=== PATIENT | male | born 1965 | race Caucasian/White ===

== ENCOUNTER 2019-05-01 10:49 | Inpatient (IN) | payer OTHER ==
[~2019-05-01] VITALS: Ht 172.7 cm; Wt 54.9 kg
--- NOTE | 2019-05-01 10:49 | NUR ---
Patient BIBA ALS, transferred to bed 11. RN evaluating patient at bedside.
[2019-05-01 10:54] VITALS: BP_SYST 80; BP_SYST 88; BP_DIAS 49; BP_DIAS 53
[2019-05-01] MEDS ORDERED: NACL 0.9% 250 ML IV ONE ×2 (11:05→16:25)
[2019-05-01] MEDS ORDERED: ONDANSETRON 4 MG/2 ML VIAL IVP ONE (11:10)
--- NOTE | 2019-05-01 11:10 | NUR ---
ABG obtained by respiratory therapist.
--- NOTE | 2019-05-01 11:13 | NUR ---
experimental technician at bedside.
--- NOTE | 2019-05-01 11:15 | NUR ---
53 Y/O MALE BIBA FROM [facility] WITH C/O HYPOTENSION. PT WAS AT DIALYSIS BUT DID NOT FINISH TODAY. PER EMS PT MISSED DIALYSIS TWICE. PT PRESENTS W/ LOW BP, RR EVEN AND UNLABORED. +NAUSEA/VOMITING. BOWEL SOUNDS PRESENT X 4 QUAD. ERMD MADE AWARE OF PT STATUS.
[2019-05-01 11:34] LABS: BASOPHILS # (AUTO) 0.1 K/uL (0.00-0.22); BASOPHILS % (AUTO) 0.4 % (0.0-2.0); EOSINOPHILS # (AUTO) 0.2 K/uL (0-0.4); EOSINOPHILS % (AUTO) 1.4 % (0.0-4.0); HEMATOCRIT 37.3 % (36-52); HEMOGLOBIN 11.4 g/dL (12.0-18.0); LYMPHOCYTES # (AUTO) 1.8 K/uL (2.0-11.5); LYMPHOCYTES % (AUTO) 11.1 % (20.5-51.1); MEAN CORPUSCULAR HEMOGLOBIN 25 pg (27-31); MEAN CORPUSCULAR HGB CONC 31 g/dL (33-37); MEAN CORPUSCULAR VOLUME 81.6 fL (80-94); MONOCYTES # (AUTO) 1.1 K/uL (0.8-1.0); NEUTROPHILS # (AUTO) 12.8 K/uL (1.8-7.7); NEUTROPHILS % (AUTO) 80.1 % (42.2-75.2); PLATELET COUNT (AUTO) 275 K/uL (140-450); RED BLOOD CELL COUNT(AUTO) 4.57 MIL/uL (4.20-6.10); RED CELL DISTRIBUTION WIDTH 19.8 % (11.6-13.7)
[2019-05-01 11:53] LABS: ALBUMIN 2.3 g/dL (3.4-5.0); ANION GAP 14.8 (8-16); CARBON DIOXIDE 34.9 mmol/L (21-32); POTASSIUM 3.7 mmol/L (3.5-5.1); TOTAL BILIRUBIN 0.4 mg/dL (0.0-1.0)
[2019-05-01 11:58] LABS: CREATININE 8.6 mg/dL (0.6-1.3)
[2019-05-01] MEDS ORDERED: PIPERACILLIN/TAZOBACTAM 3.375 GM in DEXTROSE 5% 50 ML IV ONE (12:10)
[2019-05-01 12:20] LABS: PROTHROMBIN TIME 10.8 secs (10.8-13.4)
[2019-05-01] MEDS ORDERED: PIPERACILLIN/TAZOBACTAM 3.375 GM VIAL IV ONE (12:23)
--- NOTE | 2019-05-01 12:48 | NUR ---
PT LAYING IN BED, NEEDS SUCTIONING, MINIMAL VOMIT. ERMD MADE AWARE
[2019-05-01] MEDS: NACL 0.9% 1,000 ML IV SCH (12:52)
[2019-05-01] MEDS ORDERED: HYDROcodone/APAP 5/325 MG 1 TAB TAB PO PRN (12:55)
[2019-05-01] MEDS ORDERED: MORPHINE SULFATE 2 MG/ML SYR IVP PRN (12:55)
[2019-05-01] MEDS ORDERED: DOCUSATE SODIUM 100 MG GELCAP PO PRN (12:55)
[2019-05-01] MEDS ORDERED: ACETAMINOPHEN 325 MG TAB PO PRN (12:55)
[2019-05-01] MEDS ORDERED: NACL 0.9% 500 ML IV ONE (13:05)
--- NOTE | 2019-05-01 13:35 | NUR ---
RESTING IN BED CALM AND PLEASANT. REMAINS ON MONITOR. RR EVEN AND UNLABORED. X1 EPISODE OF VOMITING. ERMD MADE AWARE
[2019-05-01 13:50] LABS: MAGNESIUM 2.4 mg/dL (1.8-2.4); PHOSPHORUS 3.8 mg/dL (2.5-4.9); THYROID STIMULATING HORMONE 4.44 uIU/mL (0.34-3.74)
[2019-05-01] MEDS ORDERED: DEXTROSE 50% 50 ML SYR IVP PRN (14:35)
[2019-05-01] MEDS ORDERED: INSULIN LISPRO SLIDING SCALE 100 UNITS/ML VIAL SUBQ PRN (14:35)
--- NOTE | 2019-05-01 14:46 | NUR ---
Patient will be admitted to care of DR VAZQUEZ. Admited to TELE. Will go to room 117. Belongings list completed. Report to JORGE NETTLES.
[2019-05-01] MEDS ORDERED: FAMO-90 GT (14:55)
[2019-05-01] MEDS ORDERED: ATRO10DR OP (14:55)
[2019-05-01] MEDS ORDERED: MELA1TAB32 GT (14:55)
[2019-05-01] MEDS ORDERED: MULT-153 GT (14:55)
[2019-05-01] MEDS ORDERED: XALOS OP (14:55)
[2019-05-01] MEDS ORDERED: SUCR1TAB35 GT (14:55)
[2019-05-01] MEDS ORDERED: VITA1TAB44 GT (14:55)
[2019-05-01] MEDS ORDERED: PYRI-218 GT (14:55)
[2019-05-01] MEDS ORDERED: DOCU-299 GT (14:55)
[2019-05-01] MEDS ORDERED: METO-485 GT (14:55)
[2019-05-01] MEDS ORDERED: ATOR20TA40 GT (14:55)
--- NOTE | 2019-05-01 15:00 | NUR ---
RECEIVED BEDSIDE SHIFT REPORT FROM ER NURSE FOR CONTINUATION OF CARE.
[2019-05-01] MEDS ORDERED: VANCOMYCIN PER PHARMACY MC PRN (16:10)
[2019-05-01] MEDS ORDERED: VANCOMYCIN 1,000 MG in DEXTROSE 5% 250 ML IV SCH (17:00)
--- NOTE | 2019-05-01 17:00 | NUR ---
MEDICATIONS ADMINISTERED PER GTUBE, TOLERATED WELL. VITALS ARE STABLE. TACHYCARDIA WITH NO SYMPTOMS AT THIS TIME. PATIENT REMAINS VERBALLY UNRESPONSIVE TO CUES OR COMMANDS. CHERRY INTACT, DARK URINE. WILL CONTINUE TO MONITOR.
[2019-05-01] MEDS: BLOOD GLUCOSE MONITORING 1 DEV DEV FS SCH ×2 (17:08→21:36)
[2019-05-01] MEDS: METOCLOPRAMIDE 10 MG TAB GT SCH (17:38)
[2019-05-01] MEDS: SUCRALFATE 1 GM TAB GT SCH (17:38)
--- NOTE | 2019-05-01 19:25 | NUR ---
REPORT GIVEN TO VAUDEVILLE ACTOR NURSE FOR CONTINUATION OF CARE.
--- NOTE | 2019-05-01 19:28 | NUR ---
RECEIVED PT IN STABLE CONDITION FROM AM NURSE. BEDREST. PT IS AWAKE BUT NON VERBAL. BLIND. HIGH RISK FOR FALL PROTOCOL ENFORCED. BED ON LOWEST POSITION. FREQ ROUNDS NEEDED. SIDE RAILS UP X2. FREQ ROUNDS NEEDED. CALL LIGHT PLACED WITHIN REACH. BED ALARM ON. WITH IVF INFUSING WELL ON THE LT AC G320 . CLEAR AND PATENT. CHERRY CATHETER IN PLACED WITH ONLY VERY SCANTY URINE OUTPUT ON THE TUBINGS. STILL NEED URINE SPECIMEN FOR LAB. WILL FOLLOW UP OTHER NEW ORDERS AND CONTINUE TO MONITOR.
[2019-05-01 20:00] VITALS: BP 91/36
[2019-05-01] MEDS ORDERED: NACL OP SCH (21:00)
[2019-05-01] MEDS ORDERED: ATROPINE SULFATE OP SCH (21:00)
[2019-05-01] MEDS ORDERED: MELATONIN 3 MG TAB GT PRN (21:00)
[2019-05-01] MEDS ORDERED: NON-FORMULARY ITEM (Melatonin/Pyridoxine HCl (B6) (Melatonin 3 mg Tablet) 1 EACH) GT SCH (21:00)
[2019-05-01] MEDS: MELATONIN 3 MG TAB GT SCH (21:36)
--- NOTE | 2019-05-01 21:36 | NUR ---
BLOOD SUAGR WAS CHECKED RESULT 115. NO INSULIN NEEDED.
[2019-05-01] MEDS: ATORVASTATIN 20 MG TAB GT SCH (21:37)
[2019-05-01] MEDS: PIPERACILLIN/TAZOBACTAM 2.25 GM in DEXTROSE 5% 50 ML IV SCH (21:38)
[2019-05-01] MEDS: LATANOPROST 0.005% OP 2.5 ML BTL OP SCH (21:40)
[2019-05-01] MEDS: ATROPINE 1% OP SOL 5ML BTL OP SCH (21:41)
[2019-05-01] MEDS: ONDANSETRON 4 MG/2 ML VIAL IM/IVP PRN (21:41)
--- NOTE | 2019-05-01 21:41 | NUR ---
VOMITED @ 60 ML LIQUID. ZOFRAN IVP GIVEN ORDERED. WILL CONTINUE TO MONITOR.
[2019-05-01] MEDS ORDERED: CRUSHER, PILL MC ONE (22:06)
--- NOTE | 2019-05-01 23:00 | NUR ---
MADE ROUNDS. PT ASLEEP. NO S/S OF ANY DISTRESS NOTED. WILL CONTINUE TO MONITOR.
[2019-05-02] VITALS: BP 91/67
--- NOTE | 2019-05-02 01:00 | NUR ---
SACRAL DRESSING REMOVED. NO OPEN WOUND NOTED. JUST A SLIGHT REDNESS NOTED. CLEANED WITH NS THEN COVERED WITH OPTIFOAM DRESSING. NO CLOSED WOUND ON MEDIAL BUTTOCKS NOTED. ONLY THE ONE FROM RT BIG TOE,OPEN WOUND BUT NO DRAINAGE NOTED . FRANCINE AND HEEL PROTECTOR TO BOTH HEEL APPLIED.
--- NOTE | 2019-05-02 02:00 | NUR ---
GT FEEDING NEPHRO WAS STARTED @2150 ,1OML/HR . INCREASED TO 20 ML /HR. WILL MONITOR TOLERATION ON FEEDING TO INCREASE ANOTHER 10ML AFTER 4 HRS, UP TO 40 ML/HR IF TOLERATING WELL.
[2019-05-02 02:58] LABS: BARBITURATE, URINE NEG. ng/ml (NEG <=200); BENZODIAZEPINE, URINE NEG. ng/mL (NEG <=200); CANNABINOID, URINE NEG. ng/mL (NEG <=50); COCAINE, URINE NEG. ng/mL (NEG <=300); OPIATE, URINE NEG. ng/mL (NEG <=2000); PHENCYCLIDINE SCREEN,URINE NEG. ng/mL (NEG <=25)
--- NOTE | 2019-05-02 03:20 | NUR ---
SPUTUM SPECIMEN COLLECTED BY RT. SEND TO LAB.
[2019-05-02 04:02] VITALS: BP 128/72
[2019-05-02] MEDS: PIPERACILLIN/TAZOBACTAM 2.25 GM in DEXTROSE 5% 50 ML IV SCH ×3 (04:42→21:48)
[2019-05-02] MEDS: LEVOTHYROXINE 0.05 MG TAB GT SCH (05:48)
[2019-05-02] MEDS: BLOOD GLUCOSE MONITORING 1 DEV DEV FS SCH ×4 (05:52→21:55)
--- NOTE | 2019-05-02 05:52 | NUR ---
BLOOD SUGAR WAS CHECKED RESULT 131. NO INSULIN NEDED.
--- NOTE | 2019-05-02 06:00 | NUR ---
GT FEEDING INCREASED TO 30 ML /HR.
--- NOTE | 2019-05-02 07:20 | NUR ---
ENDORSED PT IN STABLE CONDITION TO AM NURSE.
--- NOTE | 2019-05-02 07:25 | NUR ---
RECEIVED BEDSIDE REPORT FROM NIGHTSHIFT NURSE. PT RESTING IN BED. ABLE TO MAKE NEEDS KNOWN. RESPIRATIONS EVEN AND UNLABORED WITH NO SOB OR RESPIRATORY DISTRESS. SKIN WARM AND DRY TO TOUCH. IV SITE IN LAC 20G IS CLEAN, DRY, AND INTACT. SAFETY MEASURES IN PLACE. WILL CONTINUE TO MONITOR.
[2019-05-02 07:56] LABS: CARBON DIOXIDE 36.7 mmol/L (21-32); POTASSIUM 3.7 mmol/L (3.5-5.1)
[2019-05-02 07:56] LABS: HEMATOCRIT 31.5 % (36-52); HEMOGLOBIN 10.2 g/dL (12.0-18.0); MEAN CORPUSCULAR HEMOGLOBIN 26 pg (27-31); MEAN CORPUSCULAR HGB CONC 32 g/dL (33-37); MEAN CORPUSCULAR VOLUME 79.1 fL (80-94); PLATELET COUNT (AUTO) 190 K/uL (140-450); RED BLOOD CELL COUNT(AUTO) 3.99 MIL/uL (4.20-6.10); RED CELL DISTRIBUTION WIDTH 19.8 % (11.6-13.7); WHITE BLOOD COUNT (AUTO) 14.9 K/uL (4.8-10.8)
[2019-05-02 08:00] VITALS: BP 116/60
[2019-05-02 08:11] LABS: CREATININE 9.2 mg/dL (0.6-1.3)
--- NOTE | 2019-05-02 08:11 | NUR ---
RECEIVED CRITICAL LAB FROM CHEMISTRY. PT CREATININE IS 9.2. RESIDENT MADE AWARE. SAFETY MEASURES IN PLACE. WILL CONTINUE TO MONITOR
[2019-05-02] MEDS ORDERED: MULTIVITAMIN 1 TAB GT SCH (09:00)
[2019-05-02 09:11] LABS: BASOPHILS % (MANUAL) 0 % (0-2); EOSINOPHILS % (MANUAL) 5 % (0-4); LYMPHOCYTES % (MANUAL) 13 % (20-46); MONOCYTES % (MANUAL) 9 % (5-12)
[2019-05-02] MEDS: SUCRALFATE 1 GM TAB GT SCH ×3 (09:36→17:19)
[2019-05-02] MEDS: PYRIDOXINE 50 MG TAB GT SCH (09:36)
[2019-05-02] MEDS: FAMOTIDINE 20 MG TAB GT SCH (09:37)
[2019-05-02] MEDS: VIT-B COMP/VIT-C/FOLIC ACID 1 TAB GT SCH (09:37)
[2019-05-02] MEDS: METOCLOPRAMIDE 10 MG TAB GT SCH ×3 (09:38→17:21)
--- NOTE | 2019-05-02 09:38 | NUR ---
ADMINISTERED SCHED MED PRESCRIBED PER MD ORDER. PT TOLERATED WELL. MEDICATION EDUCATION PERFORMED. PT APHASIC AND UNABLE TO VERBALIZE UNDERSTANDING. SAFETY MEASURES IN PLACE. WILL CONTINUE TO MONITOR
[2019-05-02] MEDS: ATROPINE 1% OP SOL 5ML BTL OP SCH ×2 (09:42→21:49)
[2019-05-02] MEDS: ONDANSETRON 4 MG/2 ML VIAL IM/IVP PRN (10:42)
--- NOTE | 2019-05-02 10:44 | NUR ---
PT THROWING UP. PRN ANTI-NAUSEA MEDICATION ADMINISTERED PRESCRIBED PER MD ORDER. PT TOLERATED WELL. MEDICATION EDUCATION PERFORMED. PT APHASIC AND UNABLE TO RETURN DEMONSTRATION. SAFETY MEASURES IN PLACE. WILL CONTINUE TO MONITOR.
--- NOTE | 2019-05-02 11:10 | NUR ---
DR. GARCIA ASSESSED PT AT BEDSIDE AND PUT IN AN ORDER FOR DIALYSIS TODAY. ACUTE DIALYSIS NURSE PAGED AND SAID HE WILL BE HERE TODAY. SAFETY MEASURES IN PLACE. WILL CONTINUE TO MONITOR.
--- NOTE | 2019-05-02 11:30 | NUR ---
BLOOD SUGAR OBTAINED AND RESULTED IN 143. NO INSULIN COVERAGE NEEDED AT THIS TIME. SAFETY MEASURES IN PLACE. WILL CONTINUE TO MONITOR.
[2019-05-02 12:00] VITALS: BP 111/65
--- NOTE | 2019-05-02 12:15 | NUR ---
PT RESTING IN BED. FLACC 0. RESPIRATIONS EVEN AND UNLABORED WITH NO SOB OR RESPIRATORY DISTRESS. SKIN WARM AND DRY TO TOUCH. SAFETY MEASURES IN PLACE. WILL CONTINUE TO MONITOR
[2019-05-02] MEDS: NACL 0.9% 1,000 ML IV SCH (12:56)
[2019-05-02 12:59] LABS: CHOL/HDL RATIO 3.1 (1-4.5); MAGNESIUM 2.3 mg/dL (1.8-2.4); PHOSPHORUS 3.8 mg/dL (2.5-4.9)
--- NOTE | 2019-05-02 13:14 | NUR ---
ADMINISTERED SCHED MED PRESCRIBED PER MD ORDER. PT TOLERATED WELL. MEDICATION EDUCATION PERFORMED. PT APHASIC AND UNABLE TO VERBALIZE UNDERSTANDING
[2019-05-02 13:31] LABS: AMYLASE 53 U/L (25-115); LIPASE 191 U/L (73-393)
--- NOTE | 2019-05-02 13:45 | NUR ---
PT LEFT FOR CT SCAN. SAFETY MEASURES IN PLACE. WILL CONTINUE TO MONITOR.
--- NOTE | 2019-05-02 14:09 | NUR ---
PT RETURNED FROM CT SCAN. SAFETY MEASURES IN PLACE. WILL CONTINUE TO MONITOR.
[2019-05-02 15:20] LABS: APPEARANCE,URINE CLOUDY (CLEAR); BILIRUBIN,URINE 2+ (NEGATIVE); BLOOD, URINE 3+ (NEGATIVE); COLOR,URINE OTHER (YELLOW); LEUKOCYTE ESTERASE ,URINE 3+ (NEGATIVE); NITRITE, URINE POSITIVE (NEGATIVE); PH,URINE 6.5 (5.0-9.0); UGLUCOSE NEGATIVE (NEGATIVE)
[2019-05-02 15:35] LABS: RBC,URINE TOO NUMEROUS TO COUN /HPF (0-5); WBC,URINE TOO MANY TO COUNT /HPF (0-5); YEAST,URINE None Seen /HPF (None Seen)
--- NOTE | 2019-05-02 15:40 | NUR ---
CALLED DIALYSIS NURSE TO SEE WHAT TIME HE WOULD BE ARRIVING. DIALYSIS NURSE SAID HE WILL BE HERE AROUND 1630. SAFETY MEASURES IN PLACE. WILL CONTINUE TO MONITOR.
[2019-05-02 16:00] VITALS: BP 108/74
--- NOTE | 2019-05-02 16:30 | NUR ---
DIALYSIS NURSE IS HERE. REPORT GIVEN AND HD WAS STARTED. SAFETY MEASURES IN PLACE. WILL CONTINUE TO MONITOR
[2019-05-02] MEDS ORDERED: ALBUMIN HUMAN 25% 100 ML IV STA (16:47)
[2019-05-02] MEDS ORDERED: ALBUMIN HUMAN 25% 200 ML IV ONE (16:53)
--- NOTE | 2019-05-02 17:19 | NUR ---
ADMINISTERED SCHED MED PRESCRIBED PER MD ORDER. PT TOLERATED WELL. MEDICATION EDUCATION PERFORMED. PT APHASIC AND UNABLE TO VERBALIZE UNDERSTANDING. SAFETY MEASURES IN PLACE. WILL CONTINUE TO MONITOR.
--- NOTE | 2019-05-02 18:22 | NUR ---
PT RESTING IN BED. FLACC 0. RESPIRATIONS EVEN AND UNLABORED WITH NO SOB OR RESPIRATORY DISTRESS. SKIN WARM AND DRY TO TOUCH. DIALYSIS NURSE AT BEDSIDE.SAFETY MEASURES IN PLACE. WILL CONTINUE TO MONITOR
--- NOTE | 2019-05-02 19:15 | NUR ---
ENDORSED TO NIGHTSHIFT NURSE. PT RESTING IN BED. FLACC 0. RESPIRATIONS EVEN AND UNLABORED WITH NO SOB OR RESPIRATORY DISTRESS. SKIN WARM AND DRY TO TOUCH. SAFETY MEASURES IN PLACE. PT IS STABLE.
--- NOTE | 2019-05-02 19:20 | NUR ---
RECEIVED PT IN STABLE CONDITION FROM AM NURSE. AWAKE ,ALERT X2 . APHASIC. BEDBOUND. LEGALLY BLIND. ON TELE MONITOR. NO DISTRESS NOTED. WITH IVF INFUSING WELL ON THE LT AC G#20. ON GT FEEDING. TOLERATING WELL. CHERRY CATHETER IN PLACED BUT NO URINE OUTPUT. HD JUST DONE WITH RT LOWER ARM AV SHUNT . DRESSING CLEAN AND DRY. WITH GOOD BRUIT AND THRILL. RT BIG TOE WITH OPEN DRY WOUND. NO DRAINAGE NOTED. FREQ ROUNDS NEEDED. BED ON LOW POSITION. SIDE RAILS UP X2, CALL LIGHT WITHIN EASY REACH. WILL CONTINUE TO MONITOR.
[2019-05-02 20:00] VITALS: BP 103/53
--- NOTE | 2019-05-02 21:00 | NUR ---
ALL DUE MEDS GIVEN THRU GT. AND IV ANTIBIOTICS.
[2019-05-02] MEDS: ATORVASTATIN 20 MG TAB GT SCH (21:47)
[2019-05-02] MEDS: MELATONIN 3 MG TAB GT SCH (21:48)
[2019-05-02] MEDS: LATANOPROST 0.005% OP 2.5 ML BTL OP SCH (21:49)
--- NOTE | 2019-05-02 23:00 | NUR ---
MADE ROUNDS. PT AWAKE. REPOSITIONED FOR COMFORT.
[2019-05-03] VITALS: BP 109/53
--- NOTE | 2019-05-03 01:00 | NUR ---
PT RT FOOT BIG TOE FRANCINE. ELEVATED ON PILLOW. NO DRAINAGE NOTED
--- NOTE | 2019-05-03 03:00 | NUR ---
MAD ROUNDS. PT ASLEEP. NO S/S OF ANY DISCOMFORT NOTED.
[2019-05-03 04:00] VITALS: BP 126/66
--- NOTE | 2019-05-03 04:00 | NUR ---
PT IS AWAKE. NO S/S OF ANY DISTRESS NOR ANY DISCOMFORT NOTED.
[2019-05-03] MEDS: PIPERACILLIN/TAZOBACTAM 2.25 GM in DEXTROSE 5% 50 ML IV SCH ×3 (04:38→20:37)
[2019-05-03] MEDS: ONDANSETRON 4 MG/2 ML VIAL IM/IVP PRN ×2 (04:52→22:20)
--- NOTE | 2019-05-03 04:52 | NUR ---
PATIENT VOMITED X1. SMALL AMOUNT. NO SIGNS OF DISTRESS NOTED. ADMINISTERED ZOFRAN IV PUSH ORDERED PRN.
[2019-05-03] MEDS: LEVOTHYROXINE 0.05 MG TAB GT SCH (05:40)
[2019-05-03] MEDS: BLOOD GLUCOSE MONITORING 1 DEV DEV FS SCH ×4 (05:43→20:21)
--- NOTE | 2019-05-03 05:43 | NUR ---
BLOOD SUGAR WAS CHECKED RESULT 131. NO INSULIN NEEDED.
--- NOTE | 2019-05-03 06:15 | NUR ---
NEW BAG OF NEPRO STARTED. GT FLUSHED . PATENT. NO RESIDUAL NOTED.
--- NOTE | 2019-05-03 07:10 | NUR ---
ENDORSED PT IN STABLE CONDITION TO AM NURSE.
--- NOTE | 2019-05-03 07:15 | NUR ---
RECEIVED BEDSIDE REPORT FROM NIGHTSHIFT NURSE. PT RESTING IN BED UPON ARRIVAL. FLACC 0. RESPIRATIONS EVEN AND UNLABORED WITH NO SOB OR RESPIRATORY DISTRESS. SKIN WARM AND DRY TO TOUCH. IV SITE IN LAC 20G IS CLEAN, DRY, AND INTACT. SAFETY MEASURES IN PLACE. WILL CONTINUE TO MONITOR
[2019-05-03 07:43] LABS: BASOPHILS # (AUTO) 0.1 K/uL (0.00-0.22); BASOPHILS % (AUTO) 1.2 % (0.0-2.0); EOSINOPHILS # (AUTO) 0.5 K/uL (0-0.4); EOSINOPHILS % (AUTO) 4.4 % (0.0-4.0); HEMATOCRIT 24.6 % (36-52); HEMOGLOBIN 8.1 g/dL (12.0-18.0); LYMPHOCYTES # (AUTO) 1.2 K/uL (2.0-11.5); LYMPHOCYTES % (AUTO) 10.8 % (20.5-51.1); MEAN CORPUSCULAR HEMOGLOBIN 26 pg (27-31); MEAN CORPUSCULAR HGB CONC 33 g/dL (33-37); MEAN CORPUSCULAR VOLUME 77.7 fL (80-94); MONOCYTES # (AUTO) 0.8 K/uL (0.8-1.0); MONOCYTES % (AUTO) 7.8 % (1.7-9.3); NEUTROPHILS # (AUTO) 8.3 K/uL (1.8-7.7); NEUTROPHILS % (AUTO) 75.8 % (42.2-75.2); PLATELET COUNT (AUTO) 167 K/uL (140-450); RED BLOOD CELL COUNT(AUTO) 3.17 MIL/uL (4.20-6.10); RED CELL DISTRIBUTION WIDTH 19.9 % (11.6-13.7); WHITE BLOOD COUNT (AUTO) 10.9 K/uL (4.8-10.8)
[2019-05-03 08:00] VITALS: BP 100/54
[2019-05-03 08:01] LABS: MAGNESIUM 1.8 mg/dL (1.8-2.4)
[2019-05-03 08:06] LABS: T4 (THYROXINE) 8.4 ug/dL (4.5-12.0)
[2019-05-03 08:19] LABS: ANION GAP 8.1 (8-16); CARBON DIOXIDE 34.7 mmol/L (21-32)
[2019-05-03 08:24] LABS: CREATININE 5.4 mg/dL (0.6-1.3); POTASSIUM 2.8 mmol/L (3.5-5.1)
--- NOTE | 2019-05-03 08:24 | NUR ---
RECEIVED CRITICAL LAB FROM CHEMISTRY. POTASSIUM IS 2.8 AND CREATININE IS 5.4. RESIDENT MADE AWARE. WILL CONTINUE TO MONITOR
[2019-05-03] MEDS: FAMOTIDINE 20 MG TAB GT SCH (08:28)
[2019-05-03] MEDS: METOCLOPRAMIDE 10 MG TAB GT SCH ×3 (08:28→17:57)
[2019-05-03] MEDS: SUCRALFATE 1 GM TAB GT SCH ×3 (08:28→17:57)
[2019-05-03] MEDS: VIT-B COMP/VIT-C/FOLIC ACID 1 TAB GT SCH (08:28)
[2019-05-03] MEDS: PYRIDOXINE 50 MG TAB GT SCH (08:28)
[2019-05-03] MEDS: ATROPINE 1% OP SOL 5ML BTL OP SCH ×2 (08:36→20:33)
--- NOTE | 2019-05-03 08:50 | NUR ---
ADMINISTERED SCHED MED PRESCRIBED PER MD ORDER. PT TOLERATED WELL. MEDICATION EDUCATION PERFORMED. PT VERBALIZED UNDERSTANDING. SAFETY MEASURES IN PLACE. WILL CONTINUE TO MONITOR
--- NOTE | 2019-05-03 08:56 | NUR ---
PATIENT HAS BEEN SCREENED AND CATEGORIZED HIGH NUTRITION RISK. PATIENT WILL BE SEEN WITHIN 1-2 DAYS OF ADMISSION. 05/03/[address]
[2019-05-03] MEDS ORDERED: Z-GUARD PASTE TP SCH (09:00)
[2019-05-03] MEDS ORDERED: POTASSIUM CHLORIDE 40 MEQ, LIDOCAINE MPF 1% 25 MG in NACL 0.9% 250 ML IV SCH (09:30)
--- NOTE | 2019-05-03 09:45 | NUR ---
PT IV INFILTRATED. OLD IV REMOVED AND NEW ONE HAS BEEN REPLACED. LEFT WRIST 22G. SAFETY MEASURES IN PLACE. WILL CONTINUE TO MONITOR.
[2019-05-03 10:41] LABS: PHOSPHORUS 1.8 mg/dL (2.5-4.9)
--- NOTE | 2019-05-03 11:30 | NUR ---
BLOOD SUGAR IS 114. NO INSULIN COVERAGE NEEDED. SAFETY MEASURES IN PLACE. WILL CONTINUE TO MONITOR.
[2019-05-03 12:00] VITALS: BP 115/59
--- NOTE | 2019-05-03 12:02 | NUR ---
WOUND CARE EVALUATION NOTE: REASON FOR EVALUATION: LOW INGRIS SCALE AND SACRAL WOUND SKIN ASSESSMENT DONE WITH THIS 53 Y/O FEMALE PT ADMITTED TO [facility] WITH INITIAL DX SOB AND LOW BP. PAST MEDICAL HX INCLUDES ESRD on HD, DM, GLAUCOMA, CVA WITH LEFT SIDE DEFICITS. ALL ABOVE INFORMATION OBTAINED FROM ADMISSION H&P. PT IS AWAKE, ABLE TO RESPONSE WITH PHYSICAL STIMULI BUT VERY SLOW. LEFT FRONTAL MISSING 1X1CM PIECE OF SKULL AND DEPRESSED. SKIN IS WARM AND DRY, BLE NO HAIR GROWTH, NO EDEMA. DORSAL PEDAL PULSES PRESENT AND NORMAL. CAPILLARY REFILLED < 2 SEC. PLAN OF CARE DISCUSSED WITH PRIMARY RN. CLARIFICATION: SACRAL COCCYX SKIN INTACT NO OPEN WOUND. INTEGUMENTARY: -GT REBEKAH-STOMA SKIN INTACT -BILATERAL UPPER AND LOWER EXTREMITIES DRY AND FLAKY SKIN -DIABETIC ULCER RIGHT HALLUX 1X1CM SOFT BROWN THIN SCAB, REBEKAH WOUND SKIN INTACT. -MOISTURE ASSOCIATE DERMATITIS TO BUTTOCKS , SKIN RED WITH SPOTS OF EROSIONS -SACRALCOCCYX AND BILATERAL HEELS BLANCHABLE REDNESS RECOMMENDATIONS: -APPLY HYDRAGUARD TO BILATERAL UPPER AND LOWER EXTREMITIES BID AND FRANCINE -APPLY Z-GUARD TO BUTTOCKS BID AND PRN IF SOILING -PAINT RIGHT TOE WITH BETADINE SOLUTION BID AND FRANCINE -APPLY FORM DRESSING TO SACROCOCCYX Q7 DAYS AND PRN IF SOILING PREVENTION -APPLY HEEL PROTECTORS TO BOTH HEELS AT ALL TIMES -OFFLOAD BILATERAL HEELS BY PLACING PILLOWS UNDER CALVES UNLESS OTHERWISE CONTRAINDICATED -PRESSURE REDISTRIBUTION SURFACE THERAPY -TURN AND REPOSITION Q2H, OFFLOAD SACRALCOCCYX BY TURNING RIGHT AND LEFT -CONTINUE TO FOLLOW RD RECOMMENDATIONS ALL ABOVE RECOMMENDATIONS DISCUSSED WITH PRIMARY RN. WILL FOLLOW UP PT Q7-10 DAYS. PLEASE CONTACT WOUND CARE NURSE FOR ANY QUESTION AND CHANGE OF WOUND CONDITION.
--- NOTE | 2019-05-03 12:50 | NUR ---
CALLED [facility] TO OBTAIN CONSENT. CONSENT WAS OBTAINED AND VERIFIED BY TWO NURSES AND PLACED IN PT CHART. SAFETY MEASURES IN PLACE. WILL CONTINUE TO MONITOR.
--- NOTE | 2019-05-03 13:11 | NUR ---
05/03/19 RD INITIAL ASSESSMENT COMPLETED PLEASE REFER TO NUTRITION ASSESSMENT UNDER CARE ACTIVITY FOR ESTIMATED NUTRITIONAL NEEDS. 1. RECOMMEND NEPRO 1.8 @ 40 ML/HR WITH PROSOURCE ONCE DAILY -THIS WILL PROVIDE 960 ML OF VOLUME, 1788 CALORIES AND 92 GM OF PROTEIN, WHICH WILL MEET 100% OF NUTRIENT NEEDS. 2. RECOMMEND VITAMIN C 250 MG ONCE DAILY FOR WOUND HEALING 3. CONTINUE FREE WATER FLUSH OF 100 ML Q6H PER PHYSICIAN 4. RD TO FOLLOW-UP 2-3 DAYS, HIGH RISK MELIZA CALLAHAN RD
--- NOTE | 2019-05-03 13:45 | NUR ---
HOURLY ROUNDING. PT RESTING IN BED UPON ARRIVAL. FLACC 0. RESPIRATIONS EVEN AND UNLABORED WITH NO SOB OR RESPIRATORY DISTRESS. SKIN WARM AND DRY TO TOUCH. SAFETY MEASURES IN PLACE. WILL CONTINUE TO MONITOR
--- NOTE | 2019-05-03 14:30 | NUR ---
BLOOD SUGAR IS 94. NO INSULIN COVERAGE NEEDED. SAFETY MEASURES IN PLACE. WILL CONTINUE TO MONITOR.
[2019-05-03] MEDS: NACL 0.9% 1,000 ML IV SCH (14:53)
[2019-05-03] MEDS: Z-GUARD PASTE TP SCH (14:54)
[2019-05-03] MEDS: HYDRAGUARD CREAM TP SCH (14:55)
[2019-05-03] MEDS: GAUZE TP SCH (14:55)
--- NOTE | 2019-05-03 15:17 | NUR ---
DC PLANNIN YRS OLD MALE PATIENT WAS ADMITTED FROM [facility] WITH A DX OF PLEURAL EFFUSION, AND PNA. PATIENT HAS A HX OF CVA MANAGER BUSINESS CONTINUITY ,ESRD ON HD SCHEDULED ON TTHS. ON G-TUBE FEEDING ,CHERRY CATHETER . CXRAY MILD BILATERAL PLEURAL EFFUSION ADMINISTER IVF, ZOSYN IV ABX SARAHI AND NEPHRO CONSULTED. DC PLANING TO GO BACK TO [facility]. CM TO FOLLOW. Addendum: 05/04/19 at 0859 by Ashley Ledezma CM DC PLANNING : CT CHEST SHOWED BILATERAL PLEURAL EFFUSION. SEEN BY SARAHI ORDERED AFTER HEMODIALYSIS ANOTHER CT CHEST ,HD SCHEDULED TODAY CONTINUE CURRENT IV ABX ,DC PLAN TO GO BACK TO [facility] WHEN STABLE. CM TO FOLLOW. Addendum: 05/05/19 at 1206 by Ashley Ledezma CM DC PLANNING: SEEN BY SARAHI PEREZ DISCONTINUE IV ABX POSSIBLE THORACENTESIS DC PLAN TO GO BACK TO [facility] WHEN STABLE. CM TO FOLLOW Addendum: 05/05/19 at 1627 by Ashley Ledezma CM DC PLANNING: CALLED [facility] SPOKE WITH KAYLEE AND FAXED ALL THE PAPER WORK TO [facility] FOR A DC PLAN FOR TOMORROW 05/06/19 . PER KAYLEE WILL CALL BACK FOR THE ROOM NUMBER .CALLED [facility] SPOKE WITH LUI ONEIL # FOR TRANSPORT [phone]. Addendum: 05/06/19 at 1449 by Kerrie Pickens CM LATE ENTRY: RECEIVED A CALL FROM KAYLEE [facility], STATING THAT THEY DO NOT HAVE AN ISO BED AT THIS TIME. DR. CHICAS MADE AWARE, HE STATED WE CAN COLONIZED. KAYLEE [facility] MADE AWARE. SHE STATED IF NO ISOLATION NEEDED, PATIENT CAN GO TO ROOM UNDER DR. PRIDE. NEW ORDER WITH COLONIZATION FAXED TO [facility]. Addendum: 05/06/19 at 1701 by Kerrie Pickens CM LATE ENTRY: CONTACTED PATIENT'S SON JT ARAUJO AT [phone] REGARDING DC PLAN AND IS IN AGREEMENT. CONTACTED [employer] AT [phone], DUMP MOTOR OPERATOR WILL BE BETWEEN [phone]. PRIMARY RN MADE AWARE. Addendum: 05/06/19 at 1703 by Kerrie Pickens CM DR. MARIANO MADE AWARE.
[2019-05-03 16:00] VITALS: BP 123/72
--- NOTE | 2019-05-03 19:20 | NUR ---
ENDORSED TO NIGHTSHIFT NURSE. PT RESTING IN BED UPON ARRIVAL. FLACC 0. RESPIRATIONS EVEN AND UNLABORED WITH NO SOB OR RESPIRATORY DISTRESS. SKIN WARM AND DRY TO TOUCH. SAFETY MEASURES IN PLACE. PT IS STABLE
--- NOTE | 2019-05-03 19:21 | NUR ---
RECEIVED BEDSIDE REPORT FROM AM SHIFT NURSE, CHAPIN. PT RESTING IN BED UPON ARRIVAL. AWAKE, AO X1, FLACC 0. PT NON VERBAL, PT WITH CHERRY CATHETER IN PLACE, DRAINING LIGHT YELLOW URINE. R SIDED WEAKNESS. W/ RIGHT LOWER ARM AV SHUNT. WITH RIGHT BIG TOE PI, W/ REDNESS ON BUTTOCKS. RESPIRATIONS EVEN AND UNLABORED WITH NO SOB OR RESPIRATORY DISTRESS. SKIN WARM AND DRY TO TOUCH. IV SITE IN L WRIST 22G IS CLEAN, DRY, AND INTACT. SAFETY MEASURES IN PLACE. WILL CONTINUE TO MONITOR Addendum: 05/03/19 at 2254 by Susie Yan RN AMEND LIGHT YELLOW TO DARK YELLOW URINE. PT NOT MAKING ENOUGH URINE DUE TO ESRD
--- NOTE | 2019-05-03 19:45 | NUR ---
TALKED TO [facility] REP. WAS INFORMED THAT HE GOT HIS PNA SHOT 1ST DOSE 2013'; 2ND DOSE 2016. FOR INFLUENZA- PT HAD HIS FLU SHOT LAST DEC 18, 2017
[2019-05-03 20:00] VITALS: BP 112/61
[2019-05-03] MEDS: FERROUS SULFATE 300 MG/5 ML UDC GT SCH (20:26)
[2019-05-03] MEDS: MELATONIN 3 MG TAB GT SCH (20:27)
[2019-05-03] MEDS: LATANOPROST 0.005% OP 2.5 ML BTL OP SCH (20:32)
--- NOTE | 2019-05-03 20:33 | NUR ---
BAR CODE OF XALATAN 0.005% NOT WORKING AND MELATONIN 3 MG(BAR CODE-INCOMPLETE SINCE MED CUT OUT UNEVENLY); VERIFIED WITH JORGE ARANDA. DID MANUAL BAR CODE
[2019-05-03] MEDS: ATORVASTATIN 20 MG TAB GT SCH (20:37)
--- NOTE | 2019-05-03 22:17 | NUR ---
PT NAUSEOUS, SPITTING IN THE VOMIT BAG, ONLY SALIVA NO PHLEGM. WILL ADMINISTER ZOFRAN PRN
[2019-05-04] VITALS: BP 98/56
[2019-05-04] MEDS: Z-GUARD PASTE TP SCH ×2 (01:31→13:00)
[2019-05-04] MEDS: HYDRAGUARD CREAM TP SCH ×2 (01:31→13:00)
[2019-05-04] MEDS: GAUZE TP SCH ×2 (01:31→13:00)
--- NOTE | 2019-05-04 01:32 | NUR ---
PT TURNED, PLACED HYDRAGUARD AND Z GUARD AFFECTED AREAS, WILL CONTINUE TO MONITOR
[2019-05-04] MEDS: NACL 0.9% 1,000 ML IV SCH (02:28)
[2019-05-04 04:00] VITALS: BP_SYST 105; BP_SYST 114; BP_DIAS 62; BP_DIAS 63
[2019-05-04] MEDS: PIPERACILLIN/TAZOBACTAM 2.25 GM in DEXTROSE 5% 50 ML IV SCH ×3 (05:25→22:18)
[2019-05-04] MEDS: LEVOTHYROXINE 0.05 MG TAB GT SCH (06:58)
[2019-05-04] MEDS: BLOOD GLUCOSE MONITORING 1 DEV DEV FS SCH ×4 (06:58→21:00)
[2019-05-04 07:17] LABS: MAGNESIUM 1.8 mg/dL (1.8-2.4); PHOSPHORUS 1.9 mg/dL (2.5-4.9)
[2019-05-04 07:59] LABS: ANION GAP 10.2 (8-16); CARBON DIOXIDE 32.3 mmol/L (21-32); POTASSIUM 3.5 mmol/L (3.5-5.1)
[2019-05-04] MEDS ORDERED: INFLUENZA VACCINE QUAD 0.5 ML SYR IMVAC PRN (08:05)
[2019-05-04 08:13] LABS: CREATININE 6.2 mg/dL (0.6-1.3)
[2019-05-04 08:21] LABS: BASOPHILS # (AUTO) 0.1 K/uL (0.00-0.22); BASOPHILS % (AUTO) 1.5 % (0.0-2.0); EOSINOPHILS # (AUTO) 0.4 K/uL (0-0.4); HEMATOCRIT 23.8 % (36-52); HEMOGLOBIN 7.9 g/dL (12.0-18.0); LYMPHOCYTES # (AUTO) 1.4 K/uL (2.0-11.5); LYMPHOCYTES % (AUTO) 16.2 % (20.5-51.1); MEAN CORPUSCULAR HEMOGLOBIN 26 pg (27-31); MEAN CORPUSCULAR HGB CONC 33 g/dL (33-37); MEAN CORPUSCULAR VOLUME 78.2 fL (80-94); MONOCYTES # (AUTO) 0.5 K/uL (0.8-1.0); MONOCYTES % (AUTO) 6.1 % (1.7-9.3); NEUTROPHILS # (AUTO) 6.3 K/uL (1.8-7.7); NEUTROPHILS % (AUTO) 72.2 % (42.2-75.2); PLATELET COUNT (AUTO) 152 K/uL (140-450); RED BLOOD CELL COUNT(AUTO) 3.05 MIL/uL (4.20-6.10); RED CELL DISTRIBUTION WIDTH 19.7 % (11.6-13.7); WHITE BLOOD COUNT (AUTO) 8.7 K/uL (4.8-10.8)
[2019-05-04] MEDS: ASCORBIC ACID 500 MG/5 ML ORASYR GT SCH (09:00)
[2019-05-04] MEDS: VIT-B COMP/VIT-C/FOLIC ACID 1 TAB GT SCH (09:00)
[2019-05-04] MEDS: PYRIDOXINE 50 MG TAB GT SCH (09:00)
[2019-05-04] MEDS: DOCUSATE 100 MG/10 ML UDC GT SCH (09:00)
[2019-05-04] MEDS: METOCLOPRAMIDE 10 MG TAB GT SCH ×3 (09:00→17:55)
[2019-05-04] MEDS: ATROPINE 1% OP SOL 5ML BTL OP SCH ×2 (09:00→22:18)
[2019-05-04] MEDS: SUCRALFATE 1 GM TAB GT SCH ×3 (09:00→17:55)
[2019-05-04] MEDS: FAMOTIDINE 20 MG TAB GT SCH (09:00)
[2019-05-04] MEDS: FERROUS SULFATE 300 MG/5 ML UDC GT SCH ×2 (09:00→22:17)
[2019-05-04] MEDS ORDERED: FLUCONAZOLE 100 MG TAB GT SCH (10:00)
[2019-05-04 16:00] VITALS: BP 116/63
[2019-05-04] MEDS ORDERED: VANCOMYCIN 750 MG in DEXTROSE 5% 250 ML IV SCH (16:00)
[2019-05-04] MEDS: ATORVASTATIN 20 MG TAB GT SCH (22:17)
[2019-05-04] MEDS: MELATONIN 3 MG TAB GT SCH (22:17)
[2019-05-04] MEDS: LATANOPROST 0.005% OP 2.5 ML BTL OP SCH (22:19)
--- NOTE | 2019-05-04 22:19 | NUR ---
MANUAL BAR CODE FOR XALATAN NOT SCANNING; MANUAL BAR CIODE FOR MELATININ NOT SCANNING, VERIFIED Vicky AN
--- NOTE | 2019-05-05 00:17 | NUR ---
INFORMED THAT GTUBE FEEDING IS CLOGGED FOR ROW, DID THE LINE/BRUSH AND THE SODA FOR 3 HOURS TRIED TO LOOSEN DEBRIS. G TUBE STILL NOT WORKING. NIRSE WAS AT THE BEDSIDE SINCE 2200 TILL 0017 (3 HRS APPROX) SUCTIONING THE DEBRIS USING BRUSH/LINE, SODA AND WARM WATER, W/ THE ASEPTO SYRINGE.
[2019-05-05 00:18] VITALS: BP 101/29
--- NOTE | 2019-05-05 00:19 | NUR ---
DR. DE ANDA ORDERED NS AT 500 CC BOLUS FOR BP 101/29 HR 70. WILL RETAKE THE BP AFTER THE BOLUS. CARRIED ORDERS. DR. DE ANDA ASKED ME TO PUT THE ORDER FOR HIM.
[2019-05-05] MEDS ORDERED: NACL 0.9% 500 ML IV ONE (00:20)
--- NOTE | 2019-05-05 00:20 | NUR ---
BP IS 101/29 HR 70; DR. DE ANDA ORDERED 500 CC BOLUS AND "TO HOLD TEMPORARILY THE G TUBE FEEDING"
[2019-05-05] MEDS: HYDRAGUARD CREAM TP SCH ×2 (01:04→13:27)
[2019-05-05] MEDS: GAUZE TP SCH ×2 (01:04→13:27)
[2019-05-05] MEDS: Z-GUARD PASTE TP SCH ×2 (01:05→13:27)
--- NOTE | 2019-05-05 02:00 | NUR ---
RECHECKED THE BLOOD PRESSURE AFTER GIVING THE BOLUS NS- 121/61, 84 HR. PT NOT IN RESPIRATORY DISTRESS. CALM AND HAVE NO W/ SX'S OF PAIN OR DISTRESS
[2019-05-05 04:00] VITALS: BP 121/84
--- NOTE | 2019-05-05 04:20 | NUR ---
PT REFUSED TO BE TURNED EXPLAINED THE RISKS AND BENEFITS, PT NODDING YES. PT UNABLE TO VERBALIZE
--- NOTE | 2019-05-05 05:00 | NUR ---
DR. DE ANDA SAID HE WILL PUT AN ORDER FOR D5NS AT 20 ML/HR. WILL CARRY OUT Addendum: 05/05/19 at 0552 by Susie Yan RN WRONG TIME
[2019-05-05] MEDS: PIPERACILLIN/TAZOBACTAM 2.25 GM in DEXTROSE 5% 50 ML IV SCH ×2 (05:11→12:42)
--- NOTE | 2019-05-05 05:11 | NUR ---
TALKED TO DR. DE ANDA RE: 77 MG/DL BLOOD SUGAR LEVEL. FEEDING STILL CLOGGED AND HAVE NOT STARTED IT YET. NO NEW ORDERS FROM YET. PER WILL FOLLOW UP IN THE AM.
[2019-05-05] MEDS: BLOOD GLUCOSE MONITORING 1 DEV DEV FS SCH ×4 (05:13→19:57)
--- NOTE | 2019-05-05 05:30 | NUR ---
DR. DE ANDA SAID HE WILL PUT AN ORDER FOR D5NS AT 20 ML/HR. WILL CARRY OUT
[2019-05-05] MEDS: DEXT 5% /NACL 0.9% 1,000 ML IV SCH (05:40)
[2019-05-05] MEDS: LEVOTHYROXINE 0.05 MG TAB GT SCH (06:14)
[2019-05-05 07:14] LABS: BASOPHILS # (AUTO) 0.1 K/uL (0.00-0.22); EOSINOPHILS # (AUTO) 0.3 K/uL (0-0.4); EOSINOPHILS % (AUTO) 4.7 % (0.0-4.0); HEMATOCRIT 23.5 % (36-52); HEMOGLOBIN 7.6 g/dL (12.0-18.0); LYMPHOCYTES # (AUTO) 1.4 K/uL (2.0-11.5); LYMPHOCYTES % (AUTO) 20.1 % (20.5-51.1); MEAN CORPUSCULAR HEMOGLOBIN 25 pg (27-31); MEAN CORPUSCULAR HGB CONC 32 g/dL (33-37); MEAN CORPUSCULAR VOLUME 78.3 fL (80-94); MONOCYTES # (AUTO) 0.5 K/uL (0.8-1.0); MONOCYTES % (AUTO) 7.2 % (1.7-9.3); NEUTROPHILS # (AUTO) 4.6 K/uL (1.8-7.7); PLATELET COUNT (AUTO) 143 K/uL (140-450); RED CELL DISTRIBUTION WIDTH 20.4 % (11.6-13.7); WHITE BLOOD COUNT (AUTO) 6.9 K/uL (4.8-10.8)
[2019-05-05 07:27] LABS: ANION GAP 8.4 (8-16); CARBON DIOXIDE 31.5 mmol/L (21-32)
[2019-05-05 07:29] LABS: MAGNESIUM 1.7 mg/dL (1.8-2.4); PHOSPHORUS 1.5 mg/dL (2.5-4.9)
--- NOTE | 2019-05-05 07:30 | NUR ---
RECEIVED BEDSIDE REPORT FROM NIGHTSHIFT NURSE. PT RESTING IN BED UPON ARRIVAL. FLACC 0. SKIN WARM AND DRY TO TOUCH. RESPIRATIONS EVEN AND UNLABORED WITH NO SOB OR RESPIRATORY DISTRESS. IV SITE IN LEFT WRIST 22G IS CLEAN, DRY, AND INTACT. SAFETY MEASURES IN PLACE. WILL CONTINUE TO MONITOR.
[2019-05-05 07:55] LABS: CREATININE 4.5 mg/dL (0.6-1.3); POTASSIUM 2.9 mmol/L (3.5-5.1)
--- NOTE | 2019-05-05 07:55 | NUR ---
RECEIVED CRITICAL LAB FROM CHEMISTRY. PT POTASSIUM IS 2.9, BUN IS 21, AND CREATININE IS 4.5. RESIDENT MADE AWARE. SAFETY MEASURES IN PLACE. WILL CONTINUE TO MONITOR.
[2019-05-05 08:00] VITALS: BP 110/62
[2019-05-05] MEDS: ATROPINE 1% OP SOL 5ML BTL OP SCH ×2 (08:29→20:18)
--- NOTE | 2019-05-05 08:30 | NUR ---
ADMINISTERED MEDICATION PRESCRIBED PER MD ORDER. PT TOLERATED WELL. MEDICATION EDUCATION PERFORMED. PT APHASIC AND UNABLE TO VERBALIZE UNDERSTANDING. SAFETY MEASURES IN PLACE. WILL CONTINUE TO MONITOR.
[2019-05-05] MEDS: FAMOTIDINE 20 MG TAB GT SCH (09:00)
[2019-05-05] MEDS: SUCRALFATE 1 GM TAB GT SCH ×3 (09:00→17:12)
[2019-05-05] MEDS: ASCORBIC ACID 500 MG/5 ML ORASYR GT SCH (09:00)
[2019-05-05] MEDS: PYRIDOXINE 50 MG TAB GT SCH (09:00)
[2019-05-05] MEDS: DOCUSATE 100 MG/10 ML UDC GT SCH (09:00)
[2019-05-05] MEDS: METOCLOPRAMIDE 10 MG TAB GT SCH ×3 (09:00→17:12)
[2019-05-05] MEDS: VIT-B COMP/VIT-C/FOLIC ACID 1 TAB GT SCH (09:00)
[2019-05-05] MEDS ORDERED: MAG SULF 2000 MG/WATER PREMIX 50 ML IV SCH (09:00)
[2019-05-05] MEDS: FERROUS SULFATE 300 MG/5 ML UDC GT SCH ×2 (09:00→20:18)
--- NOTE | 2019-05-05 09:15 | NUR ---
NIGHTSHIFT ENDORSED THAT PT G-TUBE IS CLOGGED EVEN AFTER NUMEROUS ATTEMPTS OF UNCLOGGING IT AND THAT THE RESIDENT IS AWARE. TRIED TO FLUSH G-TUBE THIS MORNING AND HAD NO LUCK. NO RESIDUAL WAS PRESENT WHEN ASPIRATED. G-TUBE IS STILL CLOGGED SO SCHED MEDS WERE NOT GIVEN. RESIDENT MADE AWARE. SAFETY MEASURES IN PLACE. WILL CONTINUE TO MONITOR.
--- NOTE | 2019-05-05 11:15 | NUR ---
PT RESTING IN BED UPON ARRIVAL. FLACC 0. SKIN WARM AND DRY TO TOUCH. RESPIRATIONS EVEN AND UNLABORED WITH NO SOB OR RESPIRATORY DISTRESS. SAFETY MEASURES IN PLACE. WILL CONTINUE TO MONITOR.
[2019-05-05] MEDS ORDERED: POTASSIUM CHLORIDE 40 MEQ, LIDOCAINE MPF 1% 25 MG in NACL 0.9% 250 ML IV SCH (12:00)
--- NOTE | 2019-05-05 13:00 | NUR ---
FLUSHED G-TUBE AND WAS ABLE TO GET RID OF THE CLOG. G-TUBE NOW FLUSHES WITHOUT COMPLICATIONS. SAFETY MEASURES IN PLACE. WILL CONTINUE TO MONITOR
[2019-05-05] MEDS: NACL 0.9% 1,000 ML IV SCH (13:26)
[2019-05-05 16:00] VITALS: BP 112/64
[2019-05-05] MEDS ORDERED: FLUCONAZOLE 100 MG/NS PREMIX 50 ML IV SCH (16:00)
[2019-05-05] MEDS: MEROPENEM 500 MG in NACL 0.9% 50 ML IV SCH (18:01)
[2019-05-05] MEDS ORDERED: SODIUM PHOSPHATE 15 MMOLE in NACL 0.9% 250 ML IV SCH (19:00)
--- NOTE | 2019-05-05 19:05 | NUR ---
ENDORSED AT BEDSIDE TO NIGHTSHIFT NURSE. PT RESTING IN BED UPON ARRIVAL. FLACC 0. SKIN WARM AND DRY TO TOUCH. RESPIRATIONS EVEN AND UNLABORED WITH NO SOB OR RESPIRATORY DISTRESS. SAFETY MEASURES IN PLACE. PT IS STABLE
--- NOTE | 2019-05-05 19:06 | NUR ---
RECEIVED BEDSIDE REPORT FROM DAY RN. PT IS SLEEPING COMFORTABLY IN BED. APHASIC. FLACC 0. SKIN WARM AND DRY TO TOUCH. RESPIRATIONS EVEN AND UNLABORED WITH NO SOB OR RESPIRATORY DISTRESS. IV SITE IN LEFT WRIST 22G IS CLEAN, DRY, AND INTACT. IVF PER ORDERS. PT WITH G TUBE FEEDING NEPHRO 40M/H FWF 100M/Q6H. SAFETY MEASURES IN PLACE. WILL CONTINUE TO MONITOR.
[2019-05-05] MEDS: LATANOPROST 0.005% OP 2.5 ML BTL OP SCH (20:18)
[2019-05-05] MEDS: MELATONIN 3 MG TAB GT SCH (20:18)
[2019-05-05] MEDS: ATORVASTATIN 20 MG TAB GT SCH (20:18)
--- NOTE | 2019-05-05 20:18 | NUR ---
VSS. BLOOD SUGAR 114 NO COVERAGE NEEDED. KRYS MEDICATION GIVEN PER ORDERS. PT WITH <5CC RESIDUAL IN G TUBE. ALL SAFETY MEASURES ARE IN PLACE. WILL CONTINUE TO MONITOR.
--- NOTE | 2019-05-05 22:00 | NUR ---
PATIENT IS SLEEPING COMFORTABLY IN BED. CHEST RISE AND FALL NOTED. NO S/S OF DISTRESS. CALL LIGHT IS WITHIN REACH. WILL CONTINUE TO MONITOR.
--- NOTE | 2019-05-05 23:30 | NUR ---
D/C CHERRY PER ORDER. DEFLATED BALLOON BY REMOVING 9CC OF STERILE WATER. EMPTIED CHERRY WITH 50CC OF BROWN/MILKY URINE. PT TOLERATED WELL. PT IS ON HD AND PRODUCES MINIMAL URINE OUTPUT. SAFETY MEASURES ARE IN PLACE. WILL CONTINUE TO MONITOR.
[2019-05-06] VITALS: BP 111/66
--- NOTE | 2019-05-06 | NUR ---
VITAL SIGNS ARE WITHIN NORMAL LIMITS. NO S/S OF DISTRESS. CALL LIGHT IS WITHIN REACH. WILL CONTINUE TO MONITOR.
[2019-05-06] MEDS: Z-GUARD PASTE TP SCH ×2 (01:03→13:00)
[2019-05-06] MEDS: HYDRAGUARD CREAM TP SCH ×2 (01:03→13:00)
[2019-05-06] MEDS: GAUZE TP SCH ×2 (01:03→13:00)
[2019-05-06] MEDS: DEXT 5% /NACL 0.9% 1,000 ML IV SCH (01:04)
--- NOTE | 2019-05-06 01:05 | NUR ---
PATIENT LARGE BM WAS CLEANED AND WOUND CARE GIVEN. PT TOLERATED WELL. ALL NEEDS MET. CALL LIGHT IS WITHIN REACH.
--- NOTE | 2019-05-06 04:10 | NUR ---
PT IS SLEEPING COMFORTABLY IN BED. CHEST RISE AND FALL NOTED. NO S/S OF DISTRESS. CALL LIGHT IS WITHIN REACH. WILL CONTINUE TO MONITOR.
[2019-05-06] MEDS: LEVOTHYROXINE 0.05 MG TAB GT SCH (05:39)
[2019-05-06] MEDS: MEROPENEM 500 MG in NACL 0.9% 50 ML IV SCH ×2 (05:39→17:30)
--- NOTE | 2019-05-06 05:39 | NUR ---
BLOOD SUGAR 101 NO COVERAGE NEEDED. KRYS MEDICATION GIVEN PER ORDERS. PT WITH NO RESIDUALS AT THIS TIME. TOLERATING FEEDINGS WELL. ALL NEEDS MET. SAFETY MEASURES ARE IN PLACE. CALL LIGHT IS WITHIN REACH.
[2019-05-06] MEDS: BLOOD GLUCOSE MONITORING 1 DEV DEV FS SCH ×3 (06:06→17:01)
[2019-05-06 06:59] LABS: BASOPHILS # (AUTO) 0.1 K/uL (0.00-0.22); BASOPHILS % (AUTO) 0.9 % (0.0-2.0); EOSINOPHILS # (AUTO) 0.4 K/uL (0-0.4); EOSINOPHILS % (AUTO) 5.1 % (0.0-4.0); HEMATOCRIT 24.8 % (36-52); HEMOGLOBIN 8.1 g/dL (12.0-18.0); LYMPHOCYTES # (AUTO) 1.2 K/uL (2.0-11.5); LYMPHOCYTES % (AUTO) 16.2 % (20.5-51.1); MEAN CORPUSCULAR HEMOGLOBIN 26 pg (27-31); MEAN CORPUSCULAR HGB CONC 33 g/dL (33-37); MEAN CORPUSCULAR VOLUME 79.1 fL (80-94); MONOCYTES # (AUTO) 0.5 K/uL (0.8-1.0); MONOCYTES % (AUTO) 6.9 % (1.7-9.3); NEUTROPHILS # (AUTO) 5.2 K/uL (1.8-7.7); NEUTROPHILS % (AUTO) 70.9 % (42.2-75.2); PLATELET COUNT (AUTO) 149 K/uL (140-450); RED BLOOD CELL COUNT(AUTO) 3.13 MIL/uL (4.20-6.10); RED CELL DISTRIBUTION WIDTH 20.6 % (11.6-13.7); WHITE BLOOD COUNT (AUTO) 7.4 K/uL (4.8-10.8)
[2019-05-06 07:17] LABS: ANION GAP 10.6 (8-16); CARBON DIOXIDE 30.7 mmol/L (21-32); POTASSIUM 3.3 mmol/L (3.5-5.1)
--- NOTE | 2019-05-06 07:30 | NUR ---
GAVE BEDSIDE REPORT TO DAY RN. PT ENDORSED IN STABLE CONDITION.
[2019-05-06 07:38] LABS: CREATININE 5.2 mg/dL (0.6-1.3)
--- NOTE | 2019-05-06 07:38 | NUR ---
RECEIVED BEDSIDE REPORT FROM [employer] SPECIALIST RN. PT IS AAOX1. APHASIC. FLACC 0. SKIN WARM AND DRY TO TOUCH. PT LEGALLY BLIND. RESPIRATIONS EVEN AND UNLABORED WITH NO SOB OR RESPIRATORY DISTRESS. IV SITE IN LEFT WRIST 22G IS CLEAN, DRY, AND INTACT. IVF PER ORDERS. PT WITH G-TUBE FEEDING NEPHRO 40ML/HR AND FWF 100ML/Q6H. SAFETY MEASURES IN PLACE. BOARD UPDATED. WILL MONITOR PT CLOSELY.
[2019-05-06 07:53] LABS: MAGNESIUM 2.2 mg/dL (1.8-2.4); PHOSPHORUS 3.7 mg/dL (2.5-4.9)
[2019-05-06 08:10] VITALS: BP 126/69
[2019-05-06] MEDS ORDERED: VANCOMYCIN 1,000 MG in DEXTROSE 5% 250 ML IV SCH (09:00)
--- NOTE | 2019-05-06 09:40 | NUR ---
ADMINISTERED MORNING MEDS TO PT. PT TOLERATED WELL. ALL NEEDS MET. WILL CONTINUE TO ROUND FREQUENTLY ON PT. RESIDUAL OR 10ML NOTED.
[2019-05-06] MEDS: SUCRALFATE 1 GM TAB GT SCH ×3 (09:44→17:30)
[2019-05-06] MEDS: FAMOTIDINE 20 MG TAB GT SCH (09:44)
[2019-05-06] MEDS: VIT-B COMP/VIT-C/FOLIC ACID 1 TAB GT SCH (09:44)
[2019-05-06] MEDS: PYRIDOXINE 50 MG TAB GT SCH (09:45)
[2019-05-06] MEDS: FERROUS SULFATE 300 MG/5 ML UDC GT SCH (09:45)
[2019-05-06] MEDS: METOCLOPRAMIDE 10 MG TAB GT SCH ×3 (09:45→17:30)
[2019-05-06] MEDS: ASCORBIC ACID 500 MG/5 ML ORASYR GT SCH (09:45)
[2019-05-06] MEDS: DOCUSATE 100 MG/10 ML UDC GT SCH (09:45)
[2019-05-06] MEDS: ATROPINE 1% OP SOL 5ML BTL OP SCH (09:49)
[2019-05-06] MEDS ORDERED: FER300L GT (10:32)
[2019-05-06] MEDS ORDERED: ASCO-672 GT (10:32)
[2019-05-06] MEDS ORDERED: Hydraguard TP (10:32)
[2019-05-06] MEDS ORDERED: ZGUARD TP (10:32)
[2019-05-06] MEDS ORDERED: MERO500V13 IV (11:27)
[2019-05-06] MEDS ORDERED: LACT-81 PO (11:28)
[2019-05-06] MEDS: NACL 0.9% 1,000 ML IV SCH (12:52)
--- NOTE | 2019-05-06 13:21 | NUR ---
PT RESTING IN BED. ALL NEEDS MET. WILL CONTINUE TO ROUND ON PT.
[2019-05-06 16:00] VITALS: BP 119/65
[2019-05-06 17:16] LABS: APPEARANCE,SPUN,BODY FLUID CLEAR (CLEAR); APPEARANCE,UNSPUN,BODY FLUID CLEAR (CLEAR); COLOR,BODY FLUID YELLOW (LT YELLOW); SPECIMENTYPE,BODY FLUID THORACENTESIS
[2019-05-06 17:29] LABS: GLUCOSE,BODY FLUID 107 mg/dL
--- NOTE | 2019-05-06 18:01 | NUR ---
PT SLEEPING. ALL NEEDS MET. FLU VACCINE GIVEN AND PT READY FOR DC.
--- NOTE | 2019-05-06 18:18 | NUR ---
RECEIVED BEDSIDE REPORT FROM GRIPS RN. PT IS AAOX1. APHASIC. FLACC 0. SKIN WARM AND DRY TO TOUCH. PT LEGALLY BLIND. RESPIRATIONS EVEN AND UNLABORED WITH NO SOB OR RESPIRATORY DISTRESS. IV SITE IN LEFT WRIST 22G IS CLEAN, DRY, AND INTACT. IVF PER ORDERS. PT WITH G-TUBE FEEDING NEPHRO 40ML/HR AND FWF 100ML/Q6H. SAFETY MEASURES IN PLACE. BOARD UPDATED. WILL MONITOR PT CLOSELY. Addendum: 05/06/19 at 1820 by Katey Stoll RN WRONG TIME
--- NOTE | 2019-05-06 19:00 | NUR ---
PT DISCHARGED TO [facility]. REPORT GIVEN TO KINGSLEY FOR CONTINUITY OF CARE. PT UNABLE TO SIGN DISCHARGE PAPERWORK. ALL PAPERWORK HANDED TO TRANSPORT TEAM. PT IV LEFT IN FOR IV ABX THERAPY CONTINUATION. PT PERSONAL BELONGINGS GIVEN TO TRANSPORT TEAM. PT LEFT IN STALE CONDITION.
[2019-05-06 20:04] LABS: POLYNUCLEAR, BODY FLUID 80 %; RBC, BODY FLUID 8 /cu. mm.; TOTAL VOLUME,BODY FLUID 1400 mL; WBC, BODY FLUID 48 /cu. mm.
[2019-05-06 21:52] LABS: LIPASE,BODY FLUID 78 U/L
[2019-05-06 23:33] LABS: LDH,BODY FLUID 131 U/L
[2019-05-07] MEDS ORDERED: FLUCONAZOLE 100 MG/NS PREMIX 50 ML IV SCH (16:00)
== END 2019-05-06 19:00 | DRG 871 ==
LOC: MED 10:49 → MTU 14:04
PROVIDERS: ADMIT General Practice; ATTEND General Practice
PROC: 5A1D70Z Performance of Urinary Filtration, Intermittent, Less than 6 Hours Per Day (ICD-10-PCS; 2019-05-02)
PROC: 3E02340 Introduction of Influenza Vaccine into Muscle, Percutaneous Approach (ICD-10-PCS; principal; 2019-05-04)
PROC: 5A1D70Z Performance of Urinary Filtration, Intermittent, Less than 6 Hours Per Day (ICD-10-PCS; 2019-05-04)
PROC: 0W993ZZ Drainage of Right Pleural Cavity, Percutaneous Approach (ICD-10-PCS; 2019-05-06)
DX: A41.9 Sepsis, unspecified organism (principal); J69.0 Pneumonitis due to inhalation of food and vomit; N17.0 Acute kidney failure with tubular necrosis; E43 Unspecified severe protein-calorie malnutrition; N18.6 End stage renal disease; R65.21 Severe sepsis with septic shock; T83.83XA Hemorrhage due to genitourinary prosthetic devices, implants and grafts, initial encounter; E87.0 Hyperosmolality and hypernatremia; I12.0 Hypertensive chronic kidney disease with stage 5 chronic kidney disease or end stage renal disease; I69.954 Hemiplegia and hemiparesis following unspecified cerebrovascular disease affecting left non-dominant side; J98.11 Atelectasis; Z68.1 Body mass index [BMI] 19.9 or less, adult; R65.20 Severe sepsis without septic shock; Z23 Encounter for immunization; D64.9 Anemia, unspecified; D89.9 Disorder involving the immune mechanism, unspecified; E11.22 Type 2 diabetes mellitus with diabetic chronic kidney disease; E78.5 Hyperlipidemia, unspecified; G47.00 Insomnia, unspecified; H40.9 Unspecified glaucoma; H54.62 Unqualified visual loss, left eye, normal vision right eye; D63.8 Anemia in other chronic diseases classified elsewhere; R13.10 Dysphagia, unspecified; R31.9 Hematuria, unspecified; E03.9 Hypothyroidism, unspecified; E83.39 Other disorders of phosphorus metabolism; E83.42 Hypomagnesemia; Z90.49 Acquired absence of other specified parts of digestive tract; Z99.2 Dependence on renal dialysis; Y84.6 Urinary catheterization as the cause of abnormal reaction of the patient, or of later complication, without mention of misadventure at the time of the procedure; Y92.89 Other specified places as the place of occurrence of the external cause
CPT/HCPCS: 36415; 36600; 71045; 76604; 76700; 76942; 80048; 80053; 80202; 80305; 81001; 82150; 82272; 82607; 82728; 82746; 82803; 82945; 82948; 83036; 83540; 83605; 83615; 83690; 83735; 83880; 84100; 84157; 84436; 84443; 84484; 85025; 85045; 85610; 85730; 87040; 87070; 87075; 87081; 87086; 87186; 87205; 89051; 89220; 93005; 96365; 96375; 99285; J1450; J1644; J1815; J2001; J2185; J2405; J2543; J3370; J3475; J3480; J7030; J7060; J8597; P9046; Q0092